=== PATIENT | male | born 1990 | race African-American/Black ===

== ENCOUNTER 2022-01-30 13:00 | Emergency (ER) | payer OTHER ==
[~2022-01-30] VITALS: Ht 172.7 cm; Wt 99.3 kg
[2022-01-30 13:01] VITALS: BP 120/70
== END 2022-01-30 15:46 | disposition home or self-care (01) ==
LOC: M ED 13:00
DX: S00.01XA Abrasion of scalp, initial encounter (principal); W22.8XXA Striking against or struck by other objects, initial encounter; Y92.009 Unspecified place in unspecified non-institutional (private) residence as the place of occurrence of the external cause; Y93.89 Activity, other specified; Y99.9 Unspecified external cause status